=== PATIENT | male | born 1995 | race Caucasian/White ===

== ENCOUNTER 2019-10-22 00:54 | Emergency (ER) | payer OTHER ==
[~2019-10-22] VITALS: Ht 195.6 cm; Wt 100.0 kg
[2019-10-22 00:55] VITALS: BP 140/88
[2019-10-22] MEDS ORDERED: LIDOCAINE W/EPINEPHRINE 1% 20ML VIAL SC ONE (01:30)
== END 2019-10-22 02:40 | disposition home or self-care (01) ==
LOC: M ED 00:54
DX: S01.112A Laceration without foreign body of left eyelid and periocular area, initial encounter (principal); W01.0XXA Fall on same level from slipping, tripping and stumbling without subsequent striking against object, initial encounter; Y92.89 Other specified places as the place of occurrence of the external cause

== ENCOUNTER 2020-05-28 17:10 | Emergency (ER) | payer OTHER ==
[~2020-05-28] VITALS: Ht 195.6 cm; Wt 103.3 kg
[2020-05-28] MEDS ORDERED: LIDOCAINE 5% (LIDODERM) PATCH TD ONE (19:45)
[2020-05-28] MEDS ORDERED: NAPROXEN 250 MG TAB PO ONE (19:45)
[2020-05-28] MEDS ORDERED: **NOTE PATIENT COMMENT** MISC XX SCH (21:00)
--- NOTE | 2020-05-28 21:47 | REPVR ---
PROCEDURE INFORMATION: Exam: XR Left Ribs with PA Chest, 3 Views Exam date and time: 05/28/20 (8:16pm) Age: 25 years old Clinical indication: Left-sided chest wall pain and SOB. Kicked left chest wall, then forceful twising. TECHNIQUE: Imaging protocol: XR Left ribs 3 views with PA chest COMPARISON: No relevant prior studies available FINDINGS: Lungs: Unremarkable. No consolidation. Pleural space: Unremarkable. No pleural effusions. No pneumothorax. Heart/Mediastinum: Unremarkable. No cardiomegaly. Bones/joints: Unremarkable. The left ribs appear intact. IMPRESSION: No acute findings. Clear lung maki. Left ribs appear intact. No pneumothorax. No pleural effusions. Electronically signed by: Edyta Gray On 05/28/2020 21:47:40 PM
[2020-05-28 22:08] VITALS: BP 128/86
[2020-05-28] MEDS ORDERED: ASPE4PAD TOP (22:34)
[2020-05-28] MEDS ORDERED: NAPR-837 PO (22:34)
== END 2020-05-28 22:49 | disposition home or self-care (01) ==
LOC: M ED 17:10
DX: R07.9 Chest pain, unspecified (principal)